=== PATIENT | male | born 1975 | race African-American/Black ===

== ENCOUNTER 2020-05-05 13:05 | Emergency (ER) | payer MEDICAID ==
[~2020-05-05] VITALS: Ht 180.3 cm; Wt 72.6 kg
[2020-05-05 13:14] VITALS: BP 131/93
--- NOTE | 2020-05-05 13:15 | NUR ---
44 Y/O MALE FROM HOME C/O LT RING FINGER PAIN S/P SMASHING FINGER IN DOOR 2 DAYS AGO. STATES 9/10 PAIN AT THIS TIME. NOTICABLE SWELLING TO FINGER WITH YELLOW LIKE DRAINAGE. AFEBRILE AT THIS TIME. +CMS, CAP REFILL <2 SEC. SKIN WARM AND DRY THE THE TOUCH. VSS MEDHX: DENIES ALLERIGES: ANTIONETTEA
--- NOTE | 2020-05-05 13:16 | NUR ---
DR ORTEGA AT BEDSIDE EXAMINING PT
[2020-05-05] MEDS ORDERED: LIDOCAINE MPF 1% 10 MG/ML VIAL INJ ONE (13:20)
--- NOTE | 2020-05-05 13:21 | NUR ---
hvac installation technician at bedside.
--- NOTE | 2020-05-05 13:21 | NUR ---
X-Ray at bedside.
--- NOTE | 2020-05-05 13:22 | NUR ---
LIDOCAINE PLACED AT BEDSIDE FOR USE BY DR ORTEGA
--- NOTE | 2020-05-05 13:40 | NUR ---
DR ORTEGA AT BEDSIDE TO PERFORM PROCEDURE
[2020-05-05 14:08] VITALS: BP 129/88
--- NOTE | 2020-05-05 14:08 | NUR ---
Patient discharged with v/s stable. Written and verbal after care instructions given and explained. Patient alert, oriented and verbalized understanding of instructions. Ambulatory with steady gait. All questions addressed prior to discharge. ID band removed. Patient advised to follow up with PMD. Rx of BACTRIM 800MG given. Patient educated on indication of medication including possible reaction and side effects. Opportunity to ask questions provided and answered.
== END 2020-05-05 14:08 | disposition home or self-care (01) ==
LOC: MED 13:05
DX: L03.012 Cellulitis of left finger (principal)
CPT/HCPCS: 10060; 73130; 90471; 90715; 99283; J2001; Q0092

== ENCOUNTER 2020-05-08 12:53 | Emergency (ER) | payer MEDICAID ==
[~2020-05-08] VITALS: Ht 177.8 cm; Wt 76.2 kg
[2020-05-08 13:05] VITALS: BP 139/98
--- NOTE | 2020-05-08 13:17 | NUR ---
44 Y/O M C/C RECHECK OF LEFT HAND THIRD DIGIT FINGER AFTER ABSCESS BEING DRAINED ON MONDAY. PT PRESENTS IN NO DISTRESS. PAIN 3/10, THROBBING SENSATION, WOUND SITE NOTED, SOME DRAINAGE NOTED, RED. CMS/ROM WNL. PT NKA. NO HX. RX PRESCRIBED ABX FOR AFTER ABSCESS DRAINAGE. NO NVD. PLACED IN CHAIR A.
--- NOTE | 2020-05-08 13:19 | NUR ---
SUAD AT CHAIR SITE
[2020-05-08] MEDS ORDERED: CEPHALEXIN 500 MG CAP PO ONE (13:25)
--- NOTE | 2020-05-08 13:53 | NUR ---
BRANDI SALAS AT CHAIR SIDE CLEANING LEFT HAND OF PT.
[2020-05-08 13:57] VITALS: BP 139/98
--- NOTE | 2020-05-08 13:57 | NUR ---
APPLIED NONADHERENT AND GAUZE WITHOUT ANY ISSUES
== END 2020-05-08 13:57 | disposition home or self-care (01) ==
LOC: MED 12:53
DX: M79.645 Pain in left finger(s) (principal); Z48.00 Encounter for change or removal of nonsurgical wound dressing
CPT/HCPCS: 99283

== ENCOUNTER 2020-06-05 17:40 | Emergency (ER) | payer MEDICAID ==
[~2020-06-05] VITALS: Ht 185.4 cm; Wt 83.9 kg
[2020-06-05 17:46] VITALS: BP 134/65
--- NOTE | 2020-06-05 17:51 | NUR ---
PT CRUSHED LEFT HAND 4TH FINGER LAST MONTH AND SINCE THEN NAIL HAS BEEN LOOSE, FINGER NAIL FELL OFF TODAY AND PT STATES "IT LOOKS INFECTED". RADIAL PULSE PRESENT CMS+, ROM+ NO PMH NKA
[2020-06-05] MEDS ORDERED: BACITRACIN OINT 500 UNITS/GM PKT TP ONE (18:52)
--- NOTE | 2020-06-05 19:12 | NUR ---
APPLIED DRESSING TO LEFT FOURTH DIGIT WITHOUT ANY ISSUES
[2020-06-05 19:25] VITALS: BP 134/65
--- NOTE | 2020-06-05 19:26 | NUR ---
Patient discharged with v/s stable. Written and verbal after care instructions given and explained. Patient alert, oriented and verbalized understanding of instructions. Ambulatory with steady gait. All questions addressed prior to discharge. ID band removed. Patient advised to follow up with PMD. Rx of KEFLEX 500MG, IBUPROFEN 600MG, BACITRACIN 500UNIT given. Patient educated on indication of medication including possible reaction and side effects. Opportunity to ask questions provided and answered.
== END 2020-06-05 19:25 | disposition home or self-care (01) ==
LOC: MED 17:40
DX: S61.305A Unspecified open wound of left ring finger with damage to nail, initial encounter (principal); M01.X49 Direct infection of unspecified hand in infectious and parasitic diseases classified elsewhere; X58.XXXA Exposure to other specified factors, initial encounter; Y93.89 Activity, other specified; Y92.89 Other specified places as the place of occurrence of the external cause; Y99.8 Other external cause status
CPT/HCPCS: 73140; 99283

== ENCOUNTER 2023-08-14 10:08 | Emergency (ER) | payer MEDICAID ==
[~2023-08-14] VITALS: Ht 177.8 cm; Wt 76.2 kg
[2023-08-14 10:44] VITALS: BP 129/88; PULSE 110; RESP 16; TEMP 98.1; O2SAT 100
[2023-08-14] MEDS ORDERED: ONDANSETRON 4 MG/2 ML VIAL IVP ONE (12:15)
[2023-08-14] MEDS ORDERED: NACL 0.9% 1,000 ML IV ONE (12:15)
[2023-08-14] MEDS ORDERED: ACETAMINOPHEN EXTRA STRENGTH 500 MG TAB PO ONE (12:15)
[2023-08-14] MEDS ORDERED: KETOROLAC 30 MG/ML VIAL IVP ONE (12:15)
[2023-08-14 12:26] LABS: BASOPHILS # (AUTO) 0.1 K/uL (0.00-0.22); BASOPHILS % (AUTO) 0.7 % (0.0-2.0); EOSINOPHILS % (AUTO) 0.2 % (0.0-4.0); HEMATOCRIT 48.9 % (36-52); HEMOGLOBIN 16.4 g/dL (12.0-18.0); LYMPHOCYTES # (AUTO) 1.6 K/uL (2.0-11.5); LYMPHOCYTES % (AUTO) 17.7 % (20.5-51.1); MEAN CORPUSCULAR HEMOGLOBIN 29 pg (27-31); MEAN CORPUSCULAR HGB CONC 34 g/dL (33-37); MEAN CORPUSCULAR VOLUME 84.7 fL (80-94); MONOCYTES # (AUTO) 0.6 K/uL (0.8-1.0); MONOCYTES % (AUTO) 6.6 % (1.7-9.3); NEUTROPHILS # (AUTO) 6.8 K/uL (1.8-7.7); NEUTROPHILS % (AUTO) 74.8 % (42.2-75.2); PLATELET COUNT (AUTO) 233 K/uL (140-450); RED BLOOD CELL COUNT(AUTO) 5.77 MIL/uL (4.20-6.10); RED CELL DISTRIBUTION WIDTH 13.9 % (11.6-13.7); WHITE BLOOD COUNT (AUTO) 9.1 K/uL (4.8-10.8)
[2023-08-14 12:40] LABS: ALBUMIN 4.1 g/dL (3.4-5.0); CALCIUM 9.7 mg/dL (8.5-10.1); CARBON DIOXIDE 31.5 mmol/L (21-32); POTASSIUM 3.5 mmol/L (3.5-5.1); TOTAL BILIRUBIN 0.5 mg/dL (0.0-1.0); TOTAL PROTEIN, SERUM 8.5 g/dL (6.4-8.2)
[2023-08-14] MEDS ORDERED: IBUP-2213 PO (15:24)
[2023-08-14] MEDS ORDERED: ONDA8TAB87 PO (15:24)
[2023-08-14 15:57] VITALS: BP 143/98; PULSE 82; RESP 16; TEMP 97.9; O2SAT 99
== END 2023-08-14 16:04 | disposition home or self-care (01) ==
LOC: MED 10:08
DX: R10.30 Lower abdominal pain, unspecified (principal); R11.2 Nausea with vomiting, unspecified; Z79.899 Other long term (current) drug therapy
CPT/HCPCS: 74177; 80053; 83690; 85025; 96361; 96374; 96375; 99285; J1885; J2405; Q9967

== ENCOUNTER 2023-10-28 17:23 | Emergency (ER) | payer MEDICAID ==
[~2023-10-28] VITALS: Ht 175.3 cm; Wt 69.9 kg
[~2023-10-28 17:23] MED LIST: IBUP-2213 PO; ONDA8TAB87 PO
[2023-10-28 17:55] VITALS: BP 155/99; PULSE 93; RESP 18; TEMP 98.8; O2SAT 99
[2023-10-28] MEDS ORDERED: ONDANSETRON 4 MG ODT PO ONE (20:00)
[2023-10-28] MEDS ORDERED: KETOROLAC 60 MG/2 ML VIAL IM ONE (20:00)
[2023-10-28] MEDS ORDERED: ONDA8TAB87 PO (20:12)
[2023-10-28] MEDS ORDERED: IBUP-2213 PO (20:12)
[2023-10-28 20:13] VITALS: BP 149/110; PULSE 88; RESP 12; O2SAT 100
[2023-10-28 20:30] VITALS: O2SAT 100
== END 2023-10-28 20:14 | disposition home or self-care (01) ==
LOC: MED 17:23
DX: R10.13 Epigastric pain (principal); R11.2 Nausea with vomiting, unspecified; R19.7 Diarrhea, unspecified; E11.9 Type 2 diabetes mellitus without complications; Z79.4 Long term (current) use of insulin; Z79.899 Other long term (current) drug therapy
CPT/HCPCS: 96372; 99283; J1885; Q0162